=== PATIENT | male | born 1930 | race African-American/Black ===

== ENCOUNTER 2021-10-18 12:11 | Emergency (ER) | payer MEDICARE, OTHER ==
[~2021-10-18] VITALS: Ht 182.9 cm; Wt 71.0 kg
[2021-10-18] MEDS ORDERED: METHOCARBAMOL 750MG TABLET PO SCH (13:00)
[2021-10-18] MEDS ORDERED: ACETAMINOPHEN 325MG TABLET PO ONE (13:00)
[2021-10-18] MEDS ORDERED: KETOROLAC 60MG/2ML VIAL IM ONE (13:00)
[2021-10-18] MEDS ORDERED: LIDOCAINE 5% PATCH TOP SCH (13:00)
[2021-10-18] MEDS ORDERED: ACETAMINOPHEN 325MG TABLET PO NR (13:15)
[2021-10-18] MEDS ORDERED: KETOROLAC 60MG/2ML VIAL IM NR (13:15)
[2021-10-18] MEDS ORDERED: TOPUD PO (13:47)
[2021-10-18] MEDS ORDERED: METH-653 MT (13:47)
[2021-10-18] MEDS ORDERED: LIDO1ADH23 TP (13:47)
[2021-10-18] MEDS ORDERED: IBUP-2028 MT (13:47)
[2021-10-18 14:39] VITALS: BP 167/77
== END 2021-10-18 14:50 | disposition home or self-care (01) ==
LOC: ER 12:11
DX: M25.511 Pain in right shoulder (principal); M54.2 Cervicalgia; Z91.81 History of falling; M19.011 Primary osteoarthritis, right shoulder
CPT/HCPCS: 71045; 73030; 96372; 99284; J1885